=== PATIENT | female | born 1950 ===

== ENCOUNTER 2017-03-05 01:54 | Emergency (ER) | payer BC, MEDICARE ==
[2017-03-05 02:03] VITALS: BP 167/73
--- NOTE | 2017-03-05 03:21 | EDM.PDOC ---
ED HPI GENERAL MEDICAL PROBLEM - General Chief Complaint: Chest Pain Stated Complaint: CHEST PAIN Time Seen by Provider: 03/05/17 02:09 Source of Information: Reports: Patient, RN Notes Reviewed History Limitations: Reports: No Limitations - History of Present Illness INITIAL COMMENTS - FREE TEXT/NARRATIVE: The patient states that she has had shortness of breath since 01/25/2017, and that she was subsequently diagnosed with "bronchial pneumonia" by chest x-ray, although she states that she later underwent a CT scan and was told that she had "water on the lung". She presents tonight due to left sided chest pain that developed at 21:00 tonight. She points with one finger to the left sixth intercostal space, midclavicular line. It is sharp in character, and comes and goes. When it is present, it only lasts about 1-2 minutes, and she has had about 5 episodes since it began. When it is present, it is made worse if she lifts her left upper extremity, however, when it is not present, she has no pain whatsoever him and she has not found anything that she can do to induce the pain. She states that when the pain is present, she had facial diaphoresis, and she had one episode of nausea and vomiting when the pain was present. No recent sense of impending doom. No prior similar symptoms. The patient did not receive an influenza vaccine this season. The patient and her travel back and forth between [place] and [place] , but are currently residing in a hotel here in [place]. The patient states that she has a PCP, but does not recall her name. Left Chest Pain Score (Numeric/FACES): 3 - Related Data Allergies Allergy/AdvReac Type Severity Reaction Status Date / Time aspirin Allergy Hives Verified 12/22/14 14:47 azithromycin [From Zithromax] Allergy Airway Verified 12/22/14 14:47 Tightness morphine Allergy Hives Verified 12/22/14 14:47 Penicillins Allergy Airway Verified 12/22/14 14:47 Tightness procaine HCl [From Novocain] Allergy Cannot Verified 12/22/14 14:47 Remember Sulfa (Sulfonamide Allergy Rash Verified 12/22/14 14:47 Antibiotics) tetracycline Allergy Hives Verified 12/22/14 14:47 Home Meds: Home Meds Lutein/Minerals/Vit A,C & E [Ocuvite] 1 tab PO DAILY 12/22/14 [History] Cyclobenzaprine [Flexeril] 10 mg PO TID PRN 03/05/17 [History] Escitalopram Oxalate 40 mg PO DAILY 03/05/17 [History] Hydrocodone/Acetaminophen [Hydrocodon-Acetaminophn 10-325] 1 tab PO Q6H [History] Losartan [Cozaar] 50 mg PO DAILY 03/05/17 [History] Metoprolol Succinate 25 mg PO DAILY 03/05/17 [History] hydrOXYzine Pamoate [Hydroxyzine Pamoate] 100 mg PO BEDTIME 03/05/17 [History] Past Medical History Cardiovascular History: Reports: Hypertension Respiratory History: Reports: COPD Gastrointestinal History: Reports: Diverticulosis, GERD, Other (See Below) ( Fecal incontinence) Genitourinary History: Reports: Urinary Incontinence [employer] History: Reports: , Spontaneous Musculoskeletal History: Reports: Other (See Below) (Lumbar disc disease) Neurological History: Reports: CVA, Neuropathy, Peripheral (LLE) Hematologic History: Reports: Blood Transfusion(s) Oncologic (Cancer) History: Reports: Lung (right), Uterine - Past Surgical History HEENT Surgical History: Reports: Naso-Sinus Surgery, Oral Surgery ([place] teeth extraction) Respiratory Surgical History: Reports: Lung Resection (right middle lobe) GI Surgical History: Reports: Appendectomy, Cholecystectomy, Colonoscopy Female Surgical History: Reports: Breast Biopsy (patient does not recall which side), Hysterectomy, Salpingo-Oophorectomy, Tubal Ligation (x 2) Neurological Surgical History: Reports: Lumbar Spine (fusion x 2 with subsequent removal of rods) Social & Family History - Family History Family Medical History: Noncontributory Cardiac: Reports: [place] Other Cardiac Family History: sisters brother and father - Tobacco Use Smoking Status *Q: Current Every Day Smoker Years of Tobacco use: 33 Packs/Tins Daily: 0.1 Packs/Tins Daily Comment: Down from 03/28 ppd - Caffeine Use Caffeine Use: Reports: Coffee, Tea - Alcohol Use Alcohol Use History: Yes Alcohol Use Frequency: Socially - Recreational Drug Use Recreational Drug Use: No - Living Situation & Occupation Living situation: Reports: , with Spouse Occupation: Retired ED ROS GENERAL - Review of Systems Review Of Systems: See Below Constitutional: Reports: No Symptoms HEENT: Reports: No Symptoms Respiratory: Reports: Shortness of Breath (as per the HPI) Cardiovascular: Reports: No Symptoms Endocrine: Reports: No Symptoms GI/Abdominal: Reports: No Symptoms : Reports: No Symptoms Musculoskeletal: Reports: No Symptoms Skin: Reports: No Symptoms Neurological: Reports: No Symptoms Psychiatric: Reports: No Symptoms Hematologic/Lymphatic: Reports: No Symptoms Immunologic: Reports: No Symptoms ED EXAM, GENERAL - Physical Exam Exam: See Below Exam Limited By: No Limitations General Appearance: Alert, WD/WN, No Apparent Distress Eye Exam: Bilateral Eye: Normal Inspection Ears: Normal External Exam, Hearing Grossly Normal Nose: Normal Inspection, No Blood Throat/Mouth: Normal Inspection, Normal Lips, Normal Voice, No Airway Compromise Head: Atraumatic, Normocephalic Neck: Normal Inspection, Full Range of Motion Respiratory/Chest: No Respiratory Distress, Lungs Clear, Normal Breath Sounds, No Accessory Muscle Use, Chest Non-Tender (including to the left 6th intercostal space, midclavicular line). No: Crackles, Rhonchi, Wheezing Cardiovascular: Normal Peripheral Pulses, Regular Rate, Rhythm, No Gallop, No JVD, No Murmur, No Rub Peripheral Pulses: 4+: Radial (L), Radial (R) GI/Abdominal: Normal Bowel Sounds, Soft, Non-Tender, No Organomegaly, No Distention, No Abnormal Bruit, No Mass (Female) Exam: Deferred Rectal (Female) Exam: Deferred Back Exam: Normal Inspection, Full Range of Motion, Other (Well-healed thoracotomy scar on the right back) Extremities: Normal Inspection, Normal Range of Motion, No Pedal Edema, Normal Capillary Refill Neurological: Alert, Oriented, Normal Cognition, No Motor/Sensory Deficits Psychiatric: Normal Affect Skin Exam: Warm, Dry, Intact, Normal Color, No Rash EKG INTERPRETATION EKG Date: 03/05/17 Time: 01:59 Rhythm: Other (Sinus tachycardia) Rate (Beats/Min): 110 [place]: Normal P-Wave: Present QRS: Normal ST-T: Normal QT: Normal Comparison: No Change (12/11/2014) Course - Vital Signs Last Recorded V/S: Last Vital Signs Temp 36.4 C 03/05/17 01:59 Pulse 111 H 03/05/17 01:59 Resp 17 03/05/17 01:59 BP 167/73 H 12/10/17 01:59 Pulse Ox 98 03/05/17 01:59 - Orders/Labs/Meds Orders: Active Orders 24 hr Category Date Time Status EKG Documentation Completion [RC] STAT Care 03/05/17 02:20 Active Chest 2V [CR] Stat Exams 03/05/17 02:20 Taken Labs: Laboratory Tests 03/05/17 03/05/17 03/05/17 Range/Units 02:00 02:00 02:00 WBC 12.51 H (3.98-10.04) K/mm3 RBC 4.41 (3.98-5.22) M/mm3 Hgb 13.9 (11.2-15.7) gm/L Hct 42.1 (34.1-44.9) % MCV 95.5 H (79.4-94.8) fl MCH 31.5 (25.6-32.2) pg MCHC 33.0 (32.2-35.5) g/dl RDW Std Deviation 45.3 (36.4-46.3) fL Plt Count 249 (182-369) K/mm3 MPV 11.1 (9.4-12.3) fl Neutrophils % (Manual) 68 H (40-60) % Band Neutrophils % 0 (0-10) % Lymphocytes % (Manual) 21 (20-40) % Atypical Lymphs % 2 % Monocytes % (Manual) 6 (2-10) % Eosinophils % (Manual) 2 (0.7-5.8) % Basophils % (Manual) 1 (0.1-1.2) Platelet Estimate Adequate Plt Morphology Comment Normal RBC Morph Comment Normal PT 9.7 (8.0-13.0) SECONDS INR 0.90 APTT 26 (22-36) SECONDS D-Dimer, Quantitative 0.43 (0.19-0.59) mg/L Sodium 142 (136-145) mEq/L Potassium 3.8 (3.5-5.1) mEq/L Chloride 106 (98-107) mEq/L Carbon Dioxide 26 (21-32) mEq/L Anion Gap 13.8 (5-15) BUN 15 (7-18) mg/dL Creatinine 0.8 (0.55-1.02) mg/dL Est Cr Clr Drug Dosing 70.72 mL/min Estimated GFR (MDRD) > 60 (>60) mL/min BUN/Creatinine Ratio 18.8 H (14-18) Glucose 118 H (80-115) mg/dL Calcium 9.3 (8.5-10.1) mg/dL Total Bilirubin 0.6 (0.2-1.0) mg/dL AST 38 H (15-37) U/L ALT 32 (14-59) U/L Alkaline Phosphatase 129 H (46-116) U/L Troponin I < 0.017 (0.00-0.056) ng/mL NT-Pro-B Natriuret Pep 137 H (0-125) pg/mL Total Protein 7.5 (6.4-8.2) g/dl Albumin 3.7 (3.4-5.0) g/dl Globulin 3.8 gm/dL Albumin/Globulin Ratio 1.0 (1-2) - Re-Assessments/Exams Free Text/Narrative Re-Assessment/Exam: 03/05/17 03:55 Although it would not explain the patient's left-sided chest pain, the patient asked that we check an influenza test, as she has in experiencing shortness of breath since 01/25/2017. Clinically, I do not suspect influenza. 03/05/17 03:58 Two-view chest radiograph appears to be grossly unremarkable. Cardiac silhouette is within normal limits. No pulmonary vascular congestion. No pleural effusions. No focal infiltrate. No pneumothorax. Small amount of atelectasis near the right costophrenic angle. Hyperinflation, consistent with COPD changes, noted. Formal read per the Radiologist pending. 03/05/17 04:29 Test results discussed with the patient. Today's workup is entirely unremarkable. Clinically, I suspect that the patient's left sided chest pain is musculoskeletal in etiology, likely due to a spasm of an intercostal muscle related to her coughing. I do not have an exclusion for her shortness of breath , but it does not appear that the patient has either pneumonia or "water on the lungs" as she has previously been told. The patient may be suffering from a viral URI. I will refer her to Dr. Dietrich for follow-up. Departure - Departure Time of Disposition: 04:32 Disposition: Home, Self-Care 01 Condition: Good Clinical Impression: Musculoskeletal chest pain - Discharge Information Referrals: PCP,None [Primary Care Provider] - Cathi Dietrich MD [Physician] - Forms: ED Department Discharge Additional Instructions: You were seen in the emergency room for intermittent left-sided chest pain, along with shortness of breath, nausea and vomiting. Workup in the ER included blood work, an ECG, a chest x-ray, and an influenza swab. Your entire workup was unremarkable. You have not had a heart attack. You do not have pneumonia. You do not have a blood clot in your lungs. You do not have a collapsed lung. You are not suffering from congestive heart failure or a COPD exacerbation. You do not have influenza. Your left sided chest pain is MOST LIKELY due to a muscle spasm between her ribs , caused by your frequent coughing. The cause of your shortness of breath and cough is not known, however, is likely due to a virus. We recommend that you follow-up with Dr. Cathi Dietrich as a PCP, this week. If any other problems, please do not hesitate to return to the ER. - My Orders Last 24 Hours: My Active Orders 03/05/17 02:20 EKG Documentation Completion [RC] STAT Chest 2V [CR] Stat - Assessment/Plan Last 24 Hours: My Active Orders 03/05/17 02:20 EKG Documentation Completion [RC] STAT Chest 2V [CR] Stat
--- NOTE | 2017-03-06 07:53 | CR ---
Chest: Two views of the chest were obtained. Comparison: Prior chest x-ray of 12/11/14 is available. Heart size is normal. Mild tortuosity of the thoracic aorta is seen. Minimal scarring is noted within both lung bases. Lungs otherwise are clear but hyperinflated. Bony structures are within normal limits for the patient's age. Impression: 1. Emphysematous change. 2. Other incidental findings. Nothing acute is appreciated. Diagnostic code #2
== END 2017-03-05 05:25 | disposition home or self-care (01) ==
LOC: JD.ED 01:54
DX: R07.89 Other chest pain (principal); I10 Essential (primary) hypertension; F17.210 Nicotine dependence, cigarettes, uncomplicated; Z88.6 Allergy status to analgesic agent; Z88.1 Allergy status to other antibiotic agents; Z88.5 Allergy status to narcotic agent; Z88.0 Allergy status to penicillin; Z88.2 Allergy status to sulfonamides; Z79.899 Other long term (current) drug therapy
CPT/HCPCS: 36415; 71020; 71020-26; 80053; 83880; 84484; 85025; 85379; 85610; 85730; 87804; 93005; 93010; 99283-25; 99285-25